=== PATIENT | male | born 1980 | race Caucasian/White ===

== ENCOUNTER 2024-04-15 09:06 | Outpatient (CLI) | payer OTHER, SELFPAY ==
--- NOTE | ~2024-04-15 | US_ITS ---
EXAMINATION: US art doppler w press LE BI DATE: 04/15/2024 10:20 INDICATION: Bilateral lower limb peripheral arterial occlusive disease with claudication TECHNIQUE: Segmental pressures and plethysmographic and Doppler waveforms of the brachial and lower e xtremity arteries were obtained. COMPARISON: None. FINDINGS: Right and left brachial artery pressures of 141 mm Hg and 127 mm Hg, respectively, are concordant (no rmal difference <= 30 mmHg). The right and left high-thigh pressure indices are 0.61 and 1.00, respec tively (normal > 1.2). The right ankle-brachial index (MEHNAZ) is 0.40 (normal >= 0.9-1). The right great toe-brachial index (T BI) is 0.06 (normal >= 0.6-0.8). The right lower extremity segmental pressure gradients are significa ntly increased between the arteries at each of the levels in the right lower limb and the correspondi ng artery at the contralateral left lower limb (normal gradients <= 20-30 mmHg between adjacent level s on the same leg or the same levels on the two legs). There are monophasic parvus st tardus waveform s throughout the arteries of the right lower limb. The left MEHNAZ is 0.96. The left TBI is 0.67. The left lower extremity segmental pressure gradients are normal. Arterial waveforms are triphasic at the left common femoral artery and biphasic in the more distal arteries with brisk systolic upstrokes throughout. IMPRESSION: 1. Severe arterial occlusive disease to the right lower limb which appears primarily due to stenosis proximal to the high right thigh, potentially in the right iliac arteries in the pelvis. 2. Possible mild arterial occlusive disease to the left lower limb with borderline left MEHNAZ and TBI. Reviewed, dictated and finalized at location B. IMPRESSION: 1. Severe arterial occlusive disease to the right lower limb which appears prim arily due to stenosis proximal to the high right thigh, potentially in the righ t iliac arteries in the pelvis. 2. Possible mild arterial occlusive disease to the left lower limb with borderl ine left MEHNAZ and TBI.
== END 2024-04-15 09:07 | disposition home or self-care (01) ==
LOC: ANHIMG 09:16
PROVIDERS: PCP Family Medicine; Visit Provider Podiatrist Foot & Ankle Surgery
DX: I73.9 Peripheral vascular disease, unspecified (principal)
CPT/HCPCS: 93923